=== PATIENT | female | born 1965 ===

== ENCOUNTER 2019-08-06 08:52 | Day surgery (SDC) | payer BC ==
[2019-08-06] MEDS ORDERED: LIDOcaine 1%/PF 5ML 10 MG/ML VIAL ONE (10:17)
[2019-08-06] MEDS ORDERED: mupirocin 2% ointment 22GM ONE (10:17)
== END 2019-08-06 11:41 | disposition home or self-care (01) ==
LOC: WOUND CARE 08:52
PROVIDERS: ATTEND Surgery
DX: D17.1 Benign lipomatous neoplasm of skin and subcutaneous tissue of trunk (principal); D17.79 Benign lipomatous neoplasm of other sites; E11.9 Type 2 diabetes mellitus without complications; E78.5 Hyperlipidemia, unspecified; I10 Essential (primary) hypertension
CPT/HCPCS: 11402; 82948; A4663; A6449